=== PATIENT | female | born 1990 | race Caucasian/White ===

== ENCOUNTER 2022-04-24 20:43 | Emergency (ER) | payer BC ==
[2022-04-24] MEDS ORDERED: Lidocaine 1% with EPINEPHrine 1:100,000 20 ML MDV INJECT ONE (22:05)
== END 2022-04-24 23:20 | disposition home or self-care (01) ==
LOC: JD.ED 20:43
DX: S01.81XA Laceration without foreign body of other part of head, initial encounter (principal); Z91.018 Allergy to other foods; Z79.899 Other long term (current) drug therapy; W55.12XA Struck by horse, initial encounter
CPT/HCPCS: 12013; 70450; 70450-26; 71046; 71046-26; 99284-25

== ENCOUNTER 2024-04-10 15:25 | Inpatient (IN) | payer BC ==
[2024-04-10] MEDS ORDERED: Sodium Chloride 0.9% 10 ML Syringe FLUSH PRN (15:53)
[2024-04-10 16:28] LABS: APPEARANCE,URINE CLEAR (Clear); BILIRUBIN,URINE 1+ (Negative); COLOR,URINE YELLOW (Yellow); GLUCOSE,URINE NEGATIVE (Negative); KETONES,URINE 3+ (Negative); LEUKOCYTE ESTERASE,URINE NEGATIVE (Negative); NITRITE,URINE NEGATIVE (Negative); OCCULT BLOOD,URINE NEGATIVE (Negative); PH,URINE 5.5 (5.0-8.0); PROTEIN,URINE NEGATIVE (Negative); UROBILINOGEN,URINE 0.2 (0.2-1.0)
[2024-04-10 16:47] LABS: BASOPHILS ABSOLUTE AUTO 0.1 K/mm3 (0.0-0.2); BASOPHILS PERCENT AUTO 0.3 % (0.0-1.0); EOSINOPHILS ABSOLUTE AUTO 0.3 K/mm3 (0.0-0.4); EOSINOPHILS PERCENT AUTO 1.7 % (0.0-6.0); HEMATOCRIT 41.2 % (37.0-47.0); HEMOGLOBIN 14.3 gm/dl (12.0-16.0); IMMATURE GRAN ABSOLUTE AUTO 0.06 K/mm3 (0.00-0.05); IMMATURE GRAN PERCENT AUTO 0.4 % (0.0-0.4); LYMPHOCYTES ABSOLUTE AUTO 1.8 K/mm3 (1.0-4.8); LYMPHOCYTES PERCENT AUTO 11.1 % (24.0-44.0); MEAN CORPUSCULAR HEMOGLOBIN 29.8 pg (28.0-32.0); MEAN CORPUSCULAR HGB CONC 34.7 g/dl (32.0-36.0); MEAN CORPUSCULAR VOLUME 85.8 fl (83.0-99.0); MEAN PLATELET VOLUME 9.6 fl (9.4-12.3); MONOCYTES ABSOLUTE AUTO 0.7 K/mm3 (0.0-0.8); MONOCYTES PERCENT AUTO 4.6 % (0.0-8.0); NEUTROPHILS PERCENT AUTO 81.9 % (41.0-71.0); PLATELET COUNT,PLT 271 K/mm3 (150-400); WHITE BLOOD CELL COUNT,WBC 15.88 K/mm3 (3.9-11.3)
[2024-04-10 17:06] LABS: A/G RATIO 1.1 (1-2); ANION GAP 14.8 (5-15); BILIRUBIN TOTAL 1.3 mg/dL (0.2-1.0); BUN/CREATININE RATIO 12.2 (14-18); C-REACTIVE PROTEIN 5.39 mg/dL (<0.30); CALCIUM 9.3 mg/dL (8.5-10.1); CREATININE 0.9 mg/dL (0.55-1.02); EST CRCL DRUG DOSING (CG) 88.07 mL/min; POTASSIUM,K 3.8 mEq/L (3.5-5.1); PROTEIN TOTAL,TP 7.6 g/dl (6.4-8.2)
[2024-04-10] MEDS ORDERED: Ondansetron 4 MG/2 ML SDV ONE (17:37)
[2024-04-10] MEDS ORDERED: Rocuronium 50 MG/5 ML Vial ONE (17:37)
[2024-04-10] MEDS ORDERED: Lidocaine 1% 5 ML VIAL ONE (17:37)
[2024-04-10] MEDS ORDERED: Propofol 200 MG/20 ML SDV ONE (17:38)
[2024-04-10] MEDS ORDERED: fentaNYL 250 MCG/5 ML SDV ONE (17:38)
[2024-04-10] MEDS ORDERED: Dexamethasone 4 MG/ML 5 ML MDV ONE (17:38)
[2024-04-10] MEDS ORDERED: Midazolam 1 MG/ML 2 ML SDV ONE (17:38)
[2024-04-10] MEDS: Iopamidol 612 MG/ML 100 ML Bottle IVPUSH ONE (17:56)
[2024-04-10] MEDS ORDERED: Sodium Chloride 0.9% 1,000 ML IV STA (18:29)
[2024-04-10] MEDS: Lactated Ringers 1,000 ML IV SCH (18:34)
[2024-04-10] MEDS ORDERED: Lactated Ringers 1,000 ML ONE (18:42)
[2024-04-10] MEDS ORDERED: Neostigmine Methylsulfate 10 MG/10 ML MDV ONE (18:45)
[2024-04-10] MEDS ORDERED: Ketorolac 30 MG/ML SDV ONE (18:46)
[2024-04-10] MEDS ORDERED: HYDROmorphone 0.5 MG/0.5 ML Syringe ONE (18:51)
[2024-04-10] MEDS ORDERED: cefOXitin 2 GM Vial ONE (18:51)
[2024-04-10] MEDS ORDERED: Ondansetron 4 MG/2 ML SDV IVPUSH PRN (19:07)
[2024-04-10] MEDS ORDERED: HYDROmorphone 0.5 MG/0.5 ML Syringe IVPUSH PRN (19:07)
[2024-04-10] MEDS ORDERED: fentaNYL 100 MCG/2 ML SDV IVPUSH PRN (19:07)
[2024-04-10] MEDS: Bupivacaine 0.5% 30 ML SDV ONE (19:45)
[2024-04-10] MEDS: EPINEPHrine 1 MG/ML SDV ONE (19:45)
[2024-04-10] MEDS ORDERED: Ondansetron 4 MG Tab.DIS PO PRN (20:50)
[2024-04-10] MEDS ORDERED: Morphine 2 MG/ML SYRINGE IVPUSH PRN (20:50)
[2024-04-10 21:13] LABS: HEMATOCRIT 38.1 % (37.0-47.0); HEMOGLOBIN 13.2 gm/dl (12.0-16.0); MEAN CORPUSCULAR HGB CONC 34.6 g/dl (32.0-36.0); MEAN CORPUSCULAR VOLUME 86.6 fl (83.0-99.0); MEAN PLATELET VOLUME 9.4 fl (9.4-12.3); PLATELET COUNT,PLT 229 K/mm3 (150-400); WHITE BLOOD CELL COUNT,WBC 17.61 K/mm3 (3.9-11.3)
[2024-04-10 21:29] LABS: ANION GAP 15.8 (5-15); BUN/CREATININE RATIO 13.3 (14-18); CALCIUM 8.9 mg/dL (8.5-10.1); CREATININE 0.9 mg/dL (0.55-1.02); EST CRCL DRUG DOSING (CG) 88.07 mL/min; POTASSIUM,K 3.8 mEq/L (3.5-5.1)
[2024-04-10] MEDS: Dextrose 5%-0.45% NaCl 1,000 ML IV SCH (22:36)
[2024-04-10] MEDS: cefOXitin 2 GM in Sodium Chloride 0.9% 50 ML IV ONE (22:56)
[2024-04-10] MEDS: Sodium Chloride 0.9% 10 ML Syringe FLUSH ONE (22:57)
[2024-04-11] MEDS: cefOXitin 2 GM in Sodium Chloride 0.9% 50 ML IV SCH (03:25)
[2024-04-11] MEDS: Acetaminophen 325 MG Tab PO PRN (05:39)
[2024-04-11] MEDS: Formoterol/Mometasone 200-5 MCG 8.8 GM Inhaler INH SCH (06:24)
[2024-04-11] MEDS: Enoxaparin 40 MG/0.4 ML Syringe SUBCUT SCH (08:00)
[2024-04-11] MEDS ORDERED: Non-Formulary Medication 1 Each (Fluticasone Propion/Salmeterol [Advair Hfa 230-21 Mcg Inh INH SCH (09:00)
[2024-04-11] MEDS: Piperacillin/Tazobactam 4.5 GM in Sodium Chloride 0.9% 100 ML IV ONE (09:36)
[2024-04-11] MEDS: Piperacillin/Tazobactam 4.5 GM in Sodium Chloride 0.9% 100 ML IV SCH (17:18)
[2024-04-11] MEDS: oxyCODONE 5 MG Tab PO PRN (20:44)
[2024-04-12 07:40] LABS: HEMATOCRIT 34.7 % (37.0-47.0); HEMOGLOBIN 11.8 gm/dl (12.0-16.0); MEAN CORPUSCULAR HEMOGLOBIN 29.1 pg (28.0-32.0); MEAN CORPUSCULAR VOLUME 85.7 fl (83.0-99.0); MEAN PLATELET VOLUME 9.8 fl (9.4-12.3); PLATELET COUNT,PLT 219 K/mm3 (150-400); RED BLOOD CELL COUNT 4.05 M/mm3 (4.10-5.30); WHITE BLOOD CELL COUNT,WBC 8.19 K/mm3 (3.9-11.3)
== END 2024-04-12 16:25 | disposition home or self-care (01) | DRG 234 ==
LOC: JD.ED 15:25 → JD.SDS 18:39 → JD.MS 20:47
PROVIDERS: ADMIT Surgery; ATTEND Surgery
PROC: 0DTJ4ZZ Resection of Appendix, Percutaneous Endoscopic Approach (ICD-10-PCS; principal; 2024-04-10 19:30)
DX: K35.80 Unspecified acute appendicitis (principal); K57.20 Diverticulitis of large intestine with perforation and abscess without bleeding; J45.909 Unspecified asthma, uncomplicated; D72.829 Elevated white blood cell count, unspecified; K63.89 Other specified diseases of intestine; Z91.018 Allergy to other foods; Z79.899 Other long term (current) drug therapy; Z79.2 Long term (current) use of antibiotics
CPT/HCPCS: 00840; 36415; 74177; 74177-26; 80048; 80053; 81003; 81025; 85025; 85027; 86140; 94760; 99140; 99284; A9270-GY; J0171; J0665; J0694; J1100; J1170; J1596; J1885; J2250; J2405; J2543; J2704; J2710; J3010; J3490; J7042; J7120; Q9967